=== PATIENT | male | born 1950 | race Caucasian/White ===

== ENCOUNTER 2020-03-06 20:48 | Emergency (ER) | payer MEDICARE, OTHER ==
--- NOTE | 2020-03-06 21:32 | ED Physician Documentation ---
History of Present Illness - Stated complaint Stated Complaint: TOE INJ - Chief complaint Chief Complaint: Ext Problem - History obtained from History obtained from: Patient - History of Present Illness Timing: Today, How many hours ago (1) Pain level max: 6 Pain level now: 5 - Additonal information Additional information: L 5th toe pain s/p hitting it on an ottoman. States worse with movement and better with rest. Review of Systems Constitutional: denies: Fever, Chills GI: denies: Vomiting Skin: denies: Rash Neurologic: denies: Head injury PD PAST MEDICAL HISTORY - Past Medical History Past Medical History: No - Allergies Allergies/Adverse Reactions: Allergies Allergy/AdvReac Type Severity Reaction Status Date / Time No Known Drug Allergies Allergy Verified 03/06/20 20:57 PD ED PE NORMAL - Vitals Vital signs reviewed: Yes - General General: Alert and oriented X 3, No acute distress - HEENT HEENT: Moist mucous membranes - Neck Neck: Supple, no meningeal sign - Derm Derm: Warm and dry - Extremities Extremities: Other (L 5th toe - TTP over the proximal phalanx. NVI. ) - Neuro Neuro: Alert and oriented X 3 Results - Vitals Vitals: Vital Signs - 24 hr 03/06/20 20:55 Temperature 36.1 C L Heart Rate 56 L Respiratory 14 Rate Blood Pressure 131/76 H O2 Saturation 98 Oxygen O2 Source Room air - Rads (name of study) L 5th toe Radiology: Prelim report reviewed, EMP read contemporaneously, See rad report (L prox phalanx fracture.) PD MEDICAL DECISION MAKING - ED course Complexity details: reviewed results, re-evaluated patient, considered differential, d/w patient ED course: L 5th toe fracture. Placed in a walking boot and landy tape applied. NVI. Patient counseled regarding signs and symptoms for which I believe and urgent re-evaluation would be necessary. Patient with good understanding of and agreement to plan and is comfortable going home at this time This document was made in part using voice recognition software. While efforts are made to proofread this document, sound alike and grammatical errors may occur. Departure - Departure Disposition: 01 Home, Self Care Clinical Impression: Toe fracture, left Qualifiers: Encounter type: initial encounter Toe: lesser toe Fracture type: closed Phalanx: proximal Fracture alignment: displaced Qualified Code(s): S92.512A - Displaced fracture of proximal phalanx of left lesser toe(s), initial encounter for closed fracture Condition: Good Instructions: ED Fx Toe Closed Follow-Up: PREETHI MEYER MD [Primary Care Provider] - Within 1 week Comments: Return if you worsen. Follow up with your doctor for further care. The landy tape will help keep the toe aligned and the post op shoe will help with the pain.
--- NOTE | 2020-03-06 21:46 | XRAY Report ---
PROCEDURE: Toe(s) LT INDICATIONS: L 5th toe pain TECHNIQUE: 3 views of the left toe(s) acquired. COMPARISON: None FINDINGS: Bones: Fifth toe proximal phalanx fracture. Diffuse interphalangeal and first MTP joint degeneration . Soft tissues: No suspicious soft tissue densities. IMPRESSION: Fifth toe proximal phalanx fracture Reviewed by: Rogelio Joe MD on 03/06/2020 9:45 PM PDT Approved by: Rogelio Joe MD on 03/06/2020 9:45 PM PDT Station ID: [id number]
[2020-03-06 22:12] VITALS: BP 129/71
== END 2020-03-06 22:12 | disposition home or self-care (01) ==
LOC: ED 20:48
DX: S92.512A Displaced fracture of proximal phalanx of left lesser toe(s), initial encounter for closed fracture (principal); W22.03XA Walked into furniture, initial encounter
CPT/HCPCS: 73660; 99282; 99283